=== PATIENT | female | born 1985 | race Caucasian/White ===

== ENCOUNTER 2017-10-17 13:22 | Inpatient (IN) | payer OTHER ==
[~2017-10-17] VITALS: Ht 173.5 cm; Wt 78.5 kg
[~2017-10-17 13:22] MED LIST: FOLI0.8C; HEPA100D89; MULT-1335 PO
[2017-10-17 14:00] VITALS: BP 125/65; Ht 173.5 cm; Wt 78.5 kg
[2017-10-17] MEDS ORDERED: DOCO1CAP17 PO (16:12)
[2017-10-17] MEDS ORDERED: ASCO-182 PO (16:12)
[2017-10-17] MEDS ORDERED: OXYTOCIN 30 UNIT/D5LR 500 ML 500 ML IV PRN ×2 (16:29→21:45)
[2017-10-17] MEDS ORDERED: FAMOTIDINE(*) 20MG/50ML PREMIX 50 ML IVPB PRN (16:29)
[2017-10-17] MEDS ORDERED: DLR(*) 1000 ML BAG 1,000 ML IV SCH (16:29)
[2017-10-17] MEDS ORDERED: LIDOCAINE/SOD BICARB 8.4% SYR SC PRN (16:30)
[2017-10-17] MEDS ORDERED: LIDOCAINE 1% LOCAL 300 MG/30ML INJ PRN (16:30)
[2017-10-17] MEDS ORDERED: fentaNYL CITR 100 MCG/2 ML AMP IVP PRN (16:30)
[2017-10-17] MEDS ORDERED: FLUSH 10 ML SYR IVP PRN (16:30)
[2017-10-17] MEDS ORDERED: METOCLOPRAMIDE 10 MG/2 ML SDV IVP PRN (16:30)
--- NOTE | 2017-10-17 16:35 | History & Physical ---
History of Present Illness Age of Patient: 31 : 1 Para or TPAL: 0 EDC per LMP: Nov 03, 2017 EDC per U/S: Nov 03, 2017 Estimated Gestational Age: 37.4 Chief Complaint contractions History of Present Illness Ms. Leon is a 31yo with an SIVAKUMAR of 11/03/2017 by first trimester ultrasound, at 37.4 weeks, who presents to labor and delivery with complaint of painful uterine contractions. She reports contractions became regular and painful at about 10:00am. She denies LOF, denies vaginal bleeding, reports normal movements. No other complaints. Denies EWING, RUQ pain, nausea emesis. Antepartum course significant for: 1. factor V leiden heterozygous, h/o DVT and PE at age 21 -was on prophylactic dose lovenox during , transitioned to heparin at approx 34 weeks 2. GBS positive, no PCN allergy 3. Rh neg, FOB is A negative, no rhogam History Patient's Blood Type: A Negative Rubella Status: Immune Group B Strep Screen: Positive Miscellaneous Screens/Cultures: Hep B Sag neg, RPR NR Obstetrical History: primigravida Past Medical History: 1. factor V leiden heterozygote -DVT/PE at age 21, has been on prophylaxis during 2. 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 education, , no T/E/D Med Rec Home Meds Reported Medications Docosahexanoic Acid/Epa (FISH OIL CONCENTRATE SOFTGEL) 1 Each Capsule, 1 EACH PO DAILY, CAPSULE 10/17/17 Ascorbic Acid (VITAMIN C) 500 Mg Tablet, PO DAILY, TAB 10/17/17 Heparin Sodium,Porcine/Pf (Heparin 1,000 Unit/10 (100/ml)) 1,000 Unit/10 Ml ( 100 Unit/Ml) Syringe, BID 10/11/17 Folic Acid (Folic Acid) 0.8 Mg Capsule 10/11/17 Multivitamin With Minerals (MULTIPLE VITAMIN) 1 Each Tablet, 1 EACH PO, TAB 10/11/17 Review of Systems Constitutional: No Fever, No Weight Loss, No Weight Gain, No Chills, No Night Sweats, No Other Neurological: No Syncope, No Confusion, No Weakness, No Dizziness, No Slurred Speech, No Other Eyes: No Vision Change, No Loss of Vision, No Photophobia, No Other ENT: No Hearing Loss, No Sinus Congestion, No Sore Throat, No Ear Ache, No Tinnitus, No Other Cardiovascular: No Chest Pain, No Palpitations, No Orthostatic Hypotension, No Other Respiratory: No Shortness of Breath, No Cough, No Wheezing, No Other Gastrointestinal: No Nausea, No Vomiting, No Diarrhea, No Dysphagia, No Constipation, No Early Satiety, No Hematemesis, No Hematochezia, No Melena, No Abdominal Pain, No Other Genitourinary: No Dysuria, No Hematuria, No Urinary Incontinence, No Other Musculoskeletal: No Pain, No Sprain, No Strain, No Impaired Mobility, No Other Psychiatric: No Depression, No Anxiety, No Other Exam General Exam Vital Signs Vital Signs Date Time Temp Pulse Resp B/P (MAP) Pulse Ox O2 Delivery O2 Flow Rate FiO2 10/17/17 14:00 96.6 54 16 125/65 (85) 95 Room Air General Apperance: Alert/Awake/No Acute Distress Neuro: No Gross deficits ENT: Normal Cardiovascular: Regular Rate and Rhythm Respiratory: Clear to Auscultation Abdomen: Soft, Non-Tender, Non-Distended, Gravid - Non-Tender Musculoskeletal: No Weakness/Pain Extremities: No Cyanosis,Clubbing or Edema Integumentary: Skin Intact without Lesions or Rash Psychological: Alert & Oriented X3, Appropriate Mood & Affect Vaginal Discharge/Fluid?: Other (INTACT) Cervical Dialation: 4 Cervical Effacement (%): 80 Cervical Consistency: Soft Cervical Position: Mid Station: -2 Presentation: Vertex Uterine Contractions(Q min): 5 Uterine Contraction Strength: Moderate UC Resting Tone: Soft Fetus Feeling Movement?: Yes Estimated Weight(grams): 3000 Heart Tones: 130 Heart Tone Variabilty: Moderate FHT Accelerations: 15X15 FHT Decelerations: None FHT Category: I Medical Decision Making Pre-Admit Course Medical Record Review: Yes VTE Prophylasis: Adult Deep Vein Thrombosis/Pulmonary: No Pharmacological Contraindicati: Surgical Contraindication Mechanical Contraindications: Pt at Low Risk for VTE (on prophylactic dose heparin) Assessment and Plan WEIGHTER Assessment: Stable WEIGHTER Plan: Routine Labor Care Problems: (1) Spontaneous onset of labor Status: Acute Assessment & Plan: 31yo at 37.4, SIVAKUMAR 11/03/2017, in early labor. GBS positive. Rh negative, FOB also Rh negative. Factor V leiden heterozygous, on unfractionated heparin, last dose at 06:30am. status reassuring. -admit in early labor -PCN for GBS prophylaxis -routine labs, plus PTT/PT in case patient desires neuraxial anesthesia -discussed possibility of need for augmentation with patient and she and her verbalize understanding -all questions answered CLIVE DASILVA MD Oct 17, 2017 15:03
[2017-10-17] MEDS ORDERED: LIDOCAINE/SOD BICARB 8.4% SYR ONE (16:36)
[2017-10-17 16:53] LABS: PLATELET COUNT, AUTOMATED 150 K/uL (150-450)
[2017-10-17] MEDS ORDERED: PENICILLIN G 5 MILLUN/100 ML 100 ML IVPB ONE (17:00)
[2017-10-17 17:01] LABS: INR 1.01
[2017-10-17] MEDS: LR(*) 1000 ML BAG 1,000 ML IV SCH (17:09)
[2017-10-17] MEDS ORDERED: ceFAZolin(*) 2GM/D5W 50ML 50 ML IVPB PRN (18:32)
[2017-10-17] MEDS ORDERED: CALCIUM CARBONATE 500 MG CHEW PO PRN (19:05)
[2017-10-17] MEDS ORDERED: LIDO/EPI 2% MPF 1:200,000 20ML EPI PRN (19:25)
[2017-10-17] MEDS ORDERED: BUPIVACAINE 0.5% INJ 30ML VIAL EPI PRN (19:25)
[2017-10-17] MEDS ORDERED: fentaNYL CITR 100 MCG/2 ML AMP IT PRN (19:25)
[2017-10-17] MEDS ORDERED: ePHEDrine 25 MG/5 ML DISP.SYR IVP PRN (19:25)
[2017-10-17] MEDS ORDERED: FENTANYL/ROPIVACAINE 100 ML BAG EPI PRN (19:25)
[2017-10-17] MEDS ORDERED: LIDOCAINE/PF 2% 200MG/10ML AMP 200 MG/10 ML AMPUL EPI PRN (19:25)
[2017-10-17] MEDS ORDERED: BUPIVACAINE 0.25% MPF INJ EPI PRN (19:25)
[2017-10-17] MEDS ORDERED: EPIDURAL KEYS XX PRN (20:00)
[2017-10-17] MEDS: PENICILLIN G 2.5 MILLUN/100 ML 100 ML IVPB SCH (21:03)
--- NOTE | 2017-10-17 21:45 | Labor Progress Note ---
Labor Subjective Progress Notes Subjective Patient reports that her contractions feel more intense, but have started to space-out a bit, to every 4-5 minutes. Good movement. No other complaints. Feeling Movement?: Yes Vaginal Discharge/Fluid: Clear Fluid (AROM'd) Labor Pain: Moderate Neurological: No Headache, No Other Eyes: No Visual Disturbances Labor Objective Vital Signs Vital Signs Date Time Temp Pulse Resp B/P (MAP) Pulse Ox O2 Delivery O2 Flow Rate FiO2 10/17/17 14:00 96.6 54 16 125/65 (85) 95 Room Air Vaginal Discharge/Fluid?: Clear Fluid Cervical Dialation: 5 Cervical Effacement (%): 80 Cervical Consistency: Soft Cervical Position: Anterior Station: -2 Presentation: Vertex Uterine Contractions(Q min): 4 Uterine Contraction Strength: Moderate UC Resting Tone: Soft Fetus Heart Tones: 120 Heart Tone Variabilty: Moderate FHT Accelerations: 15X15 FHT Decelerations: None FHT Category: I General Exam General Appearance: Alert/Awake/No Acute Distress Abdomen: Gravid - Non-Tender Extremities: No Cyanosis,Clubbing or Edema Integumentary: Skin Intact without Lesions or Rash Psychological: Alert & Oriented X3, Appropriate Mood & Affect Other Result Diagram: 10/17/17 1645 Assessment and Plan Problems: (1) Spontaneous onset of labor Status: Acute Assessment & Plan: 31yo at 37.4, SIVAKUMAR 11/03/2017, in early labor. GBS positive. Rh negative, FOB also Rh negative. Factor V leiden heterozygous, on unfractionated heparin, last dose at 06:30am. status reassuring. Has received two doses of PCN for GBS prophylaxis. -arom'd now, start pitocin if spaces out -PCN for GBS prophylaxis -reviewed admit labs, within normal range CLIVE DASILVA MD Oct 17, 2017 21:44
[2017-10-18] MEDS: LR(*) 1000 ML BAG 1,000 ML IV SCH (00:09)
--- NOTE | 2017-10-18 00:55 | Anesthesia OB Pre-Anes Eval ---
History of Present Illness Anesthesia Start Date: Oct 18, 2017 Anesthesia Start Time: 00:10 OB Anesthesia Diagnosis: spontaneous labor EDC: Nov 03, 2017 : 1 Para: 0 Vital Signs: Vital Signs 10/17/17 14:00 Temp 96.6 Pulse 54 Resp 16 B/P (MAP) 125/65 (85) Pulse Ox 95 O2 Delivery Room Air Pain Ratin Heart Tones: 136 Result Diagram: 10/17/17 1645 Height (Inches): 68.30 Weight (Pounds): 173 BMI Calculated: 26.07 Past Medical History Medical History: other (clotting d/o hx dvt) Surgical History: other (shoulder) Previous Anesthesia: general Attended Childbirth Classes?: No Hx Anesthesia Reactions: No Hx Family Anesthesia Reaction: No Home Meds Reported Medications Docosahexanoic Acid/Epa (FISH OIL CONCENTRATE SOFTGEL) 1 Each Capsule, 1 EACH PO DAILY, CAPSULE 10/17/17 Ascorbic Acid (VITAMIN C) 500 Mg Tablet, PO DAILY, TAB 10/17/17 Heparin Sodium,Porcine/Pf (Heparin 1,000 Unit/10 (100/ml)) 1,000 Unit/10 Ml ( 100 Unit/Ml) Syringe, BID 10/11/17 Folic Acid (Folic Acid) 0.8 Mg Capsule 10/11/17 Multivitamin With Minerals (MULTIPLE VITAMIN) 1 Each Tablet, 1 EACH PO, TAB 10/11/17 Allergies: Coded Allergies: Sulfa (Sulfonamide Antibiotics) (Verified Allergy, Unknown, HIVES, 10/17/17 ) Anesthesia OB ROS Neurological: No migraines/headaches, No seizures, No neuropathy, No other ENT: Denies Tooth caps, Denies Loose teeth, Denies Chipped teeth, Denies Dentures, Denies Bridges, Denies Retainers, Denies Veneers, Denies Implants, Denies Tongue ring, Denies Other Pulmonary: No asthma, No smoker (pks/day/yrs), No other Airway Class: ll Cardiovascular ROS: No edema, No arrhythmia, No other GI ROS: clear liquids Last Solids Date: Oct 17, 2017 Last Solids Time: 18:30 ROS: No Herpes, No STD(s), No Liver Disease, No Renal Disease, No Other Endocrine ROS: No diabetes, No gestational diabetes, No thyroid disorder, No other Musculoskeletal ROS: No low back pain, No low back injury, No scoliosis, No other ASA Classification: 2 Assessment and Plan Anesthesia Plan: CSE LABER,VAHID LOADMASTER Oct 18, 2017 00:55
[2017-10-18] MEDS: PENICILLIN G 2.5 MILLUN/100 ML 100 ML IVPB SCH (00:57)
--- NOTE | 2017-10-18 00:58 | Procedure Note ---
Anesthetic Placement Note Anesthesia Plan: CSE Permit for Anesthesia Signed: Yes Anesthesia Technique: Patient Sitting Anesthesia Prep: Chlorhexidine Interspace: L 3-4 Local Anesthetic: 1% Lidocaine Amount Local - cc's: 3 Anesthesia Needle: 17g Touhy/Schliff Anesthesia Attempts: 1 Loss of Resistance: Normal Saline Depth of PINEDA (cm): 4.5 Epidural Needle Placement: No CSF, No Blood, No Parasthesia Intrathecal Needle: 27 Gauge Pencan Cerebral Spinal Fluid: Yes, Clear Catheter Insertion (cm): 9 Catheter Type: Navarrete - Spring Wound Epidural Dressing: Tegaderm, Tape Anesthesia Tray: Lot Number ([id number]), Expiration Date (06/23), Reference Number ([id number]) Anesthesia Medications: Intrathecal Dose: mcg Fentanyl (10), mg Marcaine MPF (2.5), Time (0022) Epidural Test Dose: 1.5 Lido/Epi (1:200,000), Dose - mL (3), Time (0025), Negative Epidural Infusion: 0.2% Ropivicaine, With Fentanyl 2mcg/ml, Start Time: (0035) Epidural Pump Setting: Bolus Dose - mL (6), Lockout - Minutes (20), Maintenance Rate - mL/hr (6), Maximum per Hour - mL (24) Complications: None VAHID HALL CRNA Oct 18, 2017 00:58
[2017-10-18] MEDS ORDERED: CARBOPROST TROMETHAM 250MCG/ML IM ONLY ONE (01:18)
[2017-10-18] MEDS ORDERED: METHYLERGONOVINE MAL 0.2MG/ML ONE (01:18)
[2017-10-18] MEDS ORDERED: IBUPROFEN 800 MG TAB PO SCH (02:35)
[2017-10-18] MEDS ORDERED: BENZOCAINE 20% 60 ML BTL TP PRN (02:35)
[2017-10-18] MEDS ORDERED: HYDROCORTISONE 2.5% CR 30GM TB PR PRN (02:35)
[2017-10-18] MEDS ORDERED: GLYCERIN/WITCH HAZEL LEAF 1 PK TOP PRN (02:35)
[2017-10-18] MEDS ORDERED: ACETAMINOPHEN 325 MG TAB PO PRN (02:35)
[2017-10-18] MEDS ORDERED: LANOLIN OINT 7 GM TUBE TP PRN (02:35)
[2017-10-18] MEDS ORDERED: MAGNESIUM HYDROXIDE* 30ML UDCP PO PRN (02:35)
[2017-10-18] MEDS ORDERED: DOCUSATE CALCIUM 240 MG CAP PO SCH (02:35)
[2017-10-18] MEDS ORDERED: APAP/HYDROCODONE 325/5 TAB PO PRN (02:35)
--- NOTE | 2017-10-18 02:49 | OB Delivery Note ---
Delivery Note Vaginal Delivery Type: Spont. Vaginal Delivery Delivery Date: Oct 18, 2017 Delivery Time: 02:14 Estimated Gestational Age(wks): 37.5 Length of Labor Stage I (hrs): 16 Length of Labor Stage II (hrs): 0.5 Labor Stage III (minutes): 5 Delivery Anesthesia: Epidural Sex: Male Weight (gms): 3232 [place] Apgars: 1 Minute (9), 5 Minute (9) Repair Needed: Periurethral, 1st Degree Estimated Blood Loss: 300 Notes: Ms. Leon was admitted in early labor at approximately 16:00 on 10/17/2017. She was found to be 4cm dilated, 80% effaced, and -2 station. testing was reassuring. PCN was initiated for GBS prophylaxis. Ms. Leon was examined after her second dose of PCN and was found to be 5cm, 80% effaced, -2 station. She underwent AROM for clear fluid at that time. She continued to progress and at 6cm dilated received an epidural for pain management. She progressed to fully dilated at 01:43. testing remained reassuring throughout. After approximately 30minutes of pushing, she delivered a vigorous male infant over an intact perineum in the MAI position. The 's mouth and nares were suctioned with the bulb syringe and he was handed to his mother. After pulsations ceased the cord was doubly clamped and cut and a portion of cord blood was obtained as per protocol. The placenta delivered spontaneously and intact. The uterus contracted well with pitocin and massage. The vulva vagina and perineum were examined and a R first degree periurethral laceration was noted. This was repaired with 3-0 chromic. Excellent hemostasis was noted. The infant weighed 3232 grams, apgars 9 and 9. CLIVE DASILVA MD Oct 18, 2017 02:49
--- NOTE | 2017-10-18 02:58 | Anesthesia Progress Note ---
Assessment and Plan Anesthesia Plan: CSE Anesthesia Stop Day: Oct 18, 2017 Anesthesia Stop Time: 02:45 VAHID HALL CRNA Oct 18, 2017 02:58
[2017-10-18] MEDS ORDERED: ENOX40DI8 SC (03:04)
[2017-10-18] MEDS ORDERED: LOR5/325 PO (03:04)
[2017-10-18] MEDS ORDERED: IBUP800T37 PO (03:04)
[2017-10-18 04:40] VITALS: BP 118/56
[2017-10-18 07:30] VITALS: BP 116/57
[2017-10-18] MEDS: ENOXAPARIN 40 MG/0.4ML SYR SC SCH (08:37)
[2017-10-18] MEDS: DOCUSATE CALCIUM 240 MG CAP PO SCH ×2 (08:37→20:28)
--- NOTE | 2017-10-18 09:24 | OB/GYN Progress Note ---
OB Subjective Progress Notes Subjective Patient reports overall feels well. is going well. Bleeding minimal. Able to void without difficulty. GI: POS Flatus, NEG Nausea, NEG Vomiting, NEG Bowel Movement : Voiding Well, Vaginal Bleeding, Scant Pain: Mild, Tolerating PO Pain Meds Neurological: No Headache, No Other Eyes: No Visual Disturbances OB Objective Physical Exam Vital Signs Date Time Temp Pulse Resp B/P (MAP) Pulse Ox O2 Delivery O2 Flow Rate FiO2 10/18/17 07:30 98.4 51 16 116/57 (76) 96 Room Air Intake and Output 10/19/17 07:00 # Voids 1 General Appearance: Alert/Awake/No Acute Distress Neurological: No Gross deficits Respiratory: Clear to Auscultation Abdomen: Fundus Firm, Non-Tender Extremities: No Cyanosis,Clubbing or Edema Integumentary: Skin Intact without Lesions or Rash Psychological: Alert & Oriented X3, Appropriate Mood & Affect Result Diagram: 10/17/17 1525 Assessment and Plan Problems: (1) Spontaneous onset of labor Status: Resolved (2) care and examination of lactating mother Status: Acute Assessment & Plan: 31yo PPD 0 s/p . Overall doing well. FVL heterozygote with history of DVT, therefore will continue lovenox 40mg SQ daily for post- period. -routine post- care -anticipate discharge tomorrow am CLIVE DASILVA MD Oct 18, 2017 09:24
[2017-10-18] MEDS ORDERED: INFLUENZA VIRUS VAC 0.5 ML SYR IM ONLY ONE (10:00)
[2017-10-18] MEDS ORDERED: MEASLES,MUMP,RUBELLA VAC 0.5ML SUBQ ONE (10:00)
[2017-10-18] MEDS ORDERED: DIPHTH/TETANUS/ACEL. PERTUSSIS IM ONLY ONE (10:00)
[2017-10-18 11:00] VITALS: BP 103/57
[2017-10-18] MEDS ORDERED: CALCIUM CARBONATE 500 MG CHEW PO PRN (11:20)
--- NOTE | 2017-10-18 11:36 | Anesthesia Post Eval Note ---
Anesthesia Post Eval Note Vital Signs 10/18/17 11:00 Temp 99.0 Pulse 64 Resp 17 B/P (MAP) 103/57 (72) Pulse Ox 94 O2 Delivery Room Air Pt able to participate in Eval: Yes Cardiovascular Status: Satisfactory Respiratory Status: Satisfactory Pain Managment: Satisfactory PO Nausea/Vomiting: Satisfactory Temperature Management: Satisfactory Mental Status: Satisfactory, Alert, Oriented X3 Post-Op Hydration Status: Satisfactory, Tolerating PO Well, Voiding w/o Difficulty Anesthesia Type: CSE VAHID HALL CRNA Oct 18, 2017 11:36
[2017-10-18] MEDS: IBUPROFEN 800 MG TAB PO SCH ×2 (11:40→20:28)
[2017-10-18 15:10] VITALS: BP 117/60
[2017-10-18 19:06] VITALS: BP 126/62
[2017-10-19 00:20] VITALS: BP 108/52
[2017-10-19] MEDS: IBUPROFEN 800 MG TAB PO SCH ×2 (03:59→11:52)
[2017-10-19 04:00] VITALS: BP 107/63
[2017-10-19 07:30] VITALS: BP 105/55
--- NOTE | 2017-10-19 08:52 | OB/GYN Progress Note ---
OB Subjective Progress Notes Subjective Ms. Leon reports overall feels well this am. well. Tolerating regular diet, voiding without difficulty. Ambulating without difficulty. Desires discharge home today. GI: POS Flatus, NEG Nausea, NEG Vomiting, NEG Bowel Movement : Voiding Well, Vaginal Bleeding, Scant Pain: Mild, Tolerating PO Pain Meds Neurological: No Headache, No Other Eyes: No Visual Disturbances OB Objective Physical Exam Vital Signs Date Time Temp Pulse Resp B/P (MAP) Pulse Ox O2 Delivery O2 Flow Rate FiO2 10/19/17 07:30 98.0 58 15 105/55 (72) 95 Room Air General Appearance: Alert/Awake/No Acute Distress Neurological: No Gross deficits Respiratory: Clear to Auscultation Abdomen: Fundus Firm, Non-Tender Extremities: No Cyanosis,Clubbing or Edema Integumentary: Skin Intact without Lesions or Rash Psychological: Alert & Oriented X3, Appropriate Mood & Affect Result Diagram: 10/19/17 0634 Assessment and Plan Problems: (1) Spontaneous onset of labor Status: Resolved (2) care and examination of lactating mother Status: Acute Assessment & Plan: 31yo PPD 1 s/p . Overall doing well. Meeting all criteria for discharge. FVL heterozygote with history of DVT, therefore will continue lovenox 40mg SQ daily for post- period. -routine post- care -discharge home today with lovenox, ibuprofen and lortab -f/u 6 weeks pp CLIVE DASILVA MD Oct 19, 2017 08:52
--- NOTE | 2017-10-19 08:53 | OB/GYN Discharge Summary ---
Discharge Summary Reason for Hosp/Final Diag: (1) Spontaneous onset of labor Status: Resolved (2) care and examination of lactating mother Status: Acute Hospital Course & Plan: 31yo PPD 1 s/p . Overall doing well. Meeting all criteria for discharge. FVL heterozygote with history of DVT, therefore will continue lovenox 40mg SQ daily for post- period. -routine post- care -discharge home today with lovenox, ibuprofen and lortab -f/u 6 weeks pp [place] Vital Signs Vital Signs Date Time Temp Pulse Resp B/P (MAP) Pulse Ox O2 Delivery O2 Flow Rate FiO2 10/19/17 07:30 98.0 58 15 105/55 (72) 95 Room Air Weight (Pounds): 173 Result Diagram: 10/19/17 0634 Condition: Improved Discharge: Home Home Meds Active Scripts Ibuprofen (IBUPROFEN) 800 Mg Tablet, 800 MG PO Q8H for 14 Days, #60 TAB 1 Refill Prov:CLIVE DASILVA MD 10/18/17 Hydrocodone Bit/Acetaminophen (HYDROCODON-ACETAMINOPHEN 5-325) 1 Each Tablet, 1- 2 EACH PO Q4H Y for PAIN for 7 Days, #30 TAB Prov:CLIVE DASILVA MD 10/18/17 Enoxaparin Sodium (LOVENOX) 40 Mg/0.4 Ml Disp.syrin, 40 MG SC QDAY for 42 Days, #42 SYR Prov:CLIVE DASILVA MD 10/18/17 Reported Medications Docosahexanoic Acid/Epa (FISH OIL CONCENTRATE SOFTGEL) 1 Each Capsule, 1 EACH PO DAILY, CAPSULE 10/17/17 Ascorbic Acid (VITAMIN C) 500 Mg Tablet, PO DAILY, TAB 10/17/17 Heparin Sodium,Porcine/Pf (Heparin 1,000 Unit/10 (100/ml)) 1,000 Unit/10 Ml ( 100 Unit/Ml) Syringe, BID 10/11/17 Folic Acid (Folic Acid) 0.8 Mg Capsule 10/11/17 Multivitamin With Minerals (MULTIPLE VITAMIN) 1 Each Tablet, 1 EACH PO, TAB 10/11/17 [facility] [phone] Follow up in: 6 wks PP or PO Discharge Diet: As Tolerates Discharge Activity: As Tolerates, Pelvic Rest CLIVE DASILVA MD Oct 19, 2017 08:53
[2017-10-19] MEDS: ENOXAPARIN 40 MG/0.4ML SYR SC SCH (08:54)
[2017-10-19] MEDS: DOCUSATE CALCIUM 240 MG CAP PO SCH (08:54)
[2017-10-19 10:50] VITALS: BP 115/52
== END 2017-10-19 13:05 | disposition home or self-care (01) | DRG 775 ==
LOC: OBSVTOIN 13:22 → OB 13:22
PROVIDERS: ADMIT Obstetrics & Gynecology; ATTEND Obstetrics & Gynecology
PROC: 10907ZC Drainage of Amniotic Fluid, Therapeutic from Products of Conception, Via Natural or Artificial Opening (ICD-10-PCS; 2017-10-17)
PROC: 10E0XZZ Delivery of Products of Conception, External Approach (ICD-10-PCS; principal; 2017-10-18)
PROC: 0HQ9XZZ Repair Perineum Skin, External Approach (ICD-10-PCS; 2017-10-18)
DX: O99.824 Streptococcus B carrier state complicating childbirth (principal); O36.0130 Maternal care for anti-D [Rh] antibodies, third trimester, not applicable or unspecified; D68.51 Activated protein C resistance; O99.12 Other diseases of the blood and blood-forming organs and certain disorders involving the immune mechanism complicating childbirth; O70.0 First degree perineal laceration during delivery; Z37.0 Single live birth; Z3A.37 37 weeks gestation of pregnancy; Z86.711 Personal history of pulmonary embolism; Z86.718 Personal history of other venous thrombosis and embolism; Z88.2 Allergy status to sulfonamides
CPT/HCPCS: 36415; 85025; 85027; 85610; 85730; 86850; 86900; 86901; J1650; J2540; J2590; J3010; J7120

== ENCOUNTER → 2018-07-13 | Outpatient (CLI) | payer OTHER ==
[2017-10-17 14:00] VITALS: BMI 26.1
[~2018-07-13] MED LIST changes: +ASCO-182 PO; +DOCO1CAP17 PO; +ENOX40DI8 SC; +ENOX40DI8 SQ; +IBUP800T37 PO; +LOR5/325 PO
== END ==
LOC: LAB 14:22
PROVIDERS: ATTEND Obstetrics & Gynecology
DX: N92.6 Irregular menstruation, unspecified (principal)
CPT/HCPCS: 36415; 84702

== ENCOUNTER → 2018-10-12 | Outpatient (CLI) | payer OTHER ==
[2017-10-17 14:00] VITALS: BMI 26.1
[~2018-10-12] MED LIST changes: +MISO200T62 PV
--- NOTE | 2018-10-12 16:48 | RADIOLOGY IMAGING REPORT ---
FACILITY: [facility] PATIENT NAME: Tammy Leon : 1985 MR: [id number] V: [id number] EXAM DATE: ORDERING PHYSICIAN: BEULAH DIAZ TECHNOLOGIST: [place] [facility] [place] Tammy Leon : 1985 Visit/Account:[id number] Date of Sevice: 10/12/2018 TRANSVAGINAL NON-OB HISTORY: May have had miscarriage, began bleeding yesterday TECHNIQUE: Transvaginal ultrasound pelvis. COMPARISON: None. FINDINGS: Uterus: ; 6.8 cm length x 3.8 cm AP x 4.9 cm transverse. Myometrium: Unremarkable. Endometrium: Unremarkable; double thickness 7.6 mm. Cervix: Grossly negative. Ovaries: Right - 2.7 x 1.5 x 3 cm Left - 1.7 x 1.2 x 3.6 cm and contains a 1.8 cm cyst Blood flow is documented in each ovary by duplex Doppler ultrasound. Adnexa: Grossly unremarkable. Free pelvic fluid: None. IMPRESSION: 1.8 cm left ovarian cyst Endometrium appears homogeneous measuring 7.6 mm. There is no demonstration of a gestational sac or retained products of conception Report Dictated By: Genesis Gil MD at 10/12/2018 4:41 PM Report E-Signed By: Genesis Gil MD at 10/12/2018 4:44 PM WSN:[email or web address]
== END ==
LOC: RAD 14:45
PROVIDERS: ATTEND Obstetrics & Gynecology
DX: N83.202 Unspecified ovarian cyst, left side (principal)

== ENCOUNTER → 2018-10-12 | Outpatient (CLI) | payer OTHER ==
[2017-10-17 14:00] VITALS: BMI 26.1
--- NOTE | 2018-10-13 15:53 | RADIOLOGY IMAGING REPORT ---
FACILITY: [facility] PATIENT NAME: Tammy Leon : 1985 MR: [id number] V: [id number] EXAM DATE: ORDERING PHYSICIAN: BEULAH DIAZ TECHNOLOGIST: Location: [facility] Patient: Tammy Leon : 1985 Visit/Account:[id number] Date of Sevice: 10/12/2018 TRANSVAGINAL NON-OB HISTORY: May have had miscarriage, began bleeding yesterday TECHNIQUE: Transvaginal ultrasound pelvis. COMPARISON: None. FINDINGS: Uterus: ; 6.8 cm length x 3.8 cm AP x 4.9 cm transverse. Myometrium: Unremarkable. Endometrium: Unremarkable; double thickness 7.6 mm. Cervix: Grossly negative. Ovaries: Right - 2.7 x 1.5 x 3 cm Left - 1.7 x 1.2 x 3.6 cm and contains a 1.8 cm cyst Blood flow is documented in each ovary by duplex Doppler ultrasound. Adnexa: Grossly unremarkable. Free pelvic fluid: None. IMPRESSION: 1.8 cm left ovarian cyst Endometrium appears homogeneous measuring 7.6 mm. There is no demonstration of a gestational sac or retained products of conception Report Dictated By: Genesis Gil MD at 10/12/2018 4:41 PM Report E-Signed By: Genesis Gil MD at 10/12/2018 4:44 PM WSN:[email or web address]
== END ==
LOC: US 14:51
PROVIDERS: ATTEND Obstetrics & Gynecology
DX: N83.202 Unspecified ovarian cyst, left side (principal)
CPT/HCPCS: 76830

== ENCOUNTER → 2018-10-19 | Outpatient (CLI) | payer OTHER ==
[2017-10-17 14:00] VITALS: BMI 26.1
== END ==
LOC: US 13:42
PROVIDERS: ATTEND Obstetrics & Gynecology
DX: Z02.9 Encounter for administrative examinations, unspecified (principal)

== ENCOUNTER → 2019-02-19 | Outpatient (CLI) | payer OTHER ==
[2017-10-17 14:00] VITALS: BMI 26.1
[~2019-02-19] MED LIST changes: +FOLI0.4T56 PO; +PROG200C16 PV
[2019-02-19 10:28] LABS: PLATELET COUNT, AUTOMATED 269 K/uL (150-450)
== END ==
LOC: LAB 09:57
PROVIDERS: ATTEND Obstetrics & Gynecology
DX: Z34.91 Encounter for supervision of normal pregnancy, unspecified, first trimester (principal)
CPT/HCPCS: 36415; 81001; 85025; 86592; 86703; 86762; 86850; 86900; 86901; 87088; 87340; 87491; 87591